=== PATIENT | female | born 1980 | race Two or more races ===

== ENCOUNTER 2020-08-31 00:39 | Emergency (ER) | payer OTHER ==
[~2020-08-31] VITALS: Ht 154.9 cm; Wt 63.5 kg
[2020-08-31] MEDS ORDERED: CHILDREN'S ASPI81 MG PO (00:42)
== END 2020-08-31 06:35 | disposition home or self-care (01) ==
LOC: ER 00:39
DX: O20.8 Other hemorrhage in early pregnancy (principal); Z3A.10 10 weeks gestation of pregnancy

== ENCOUNTER 2020-10-04 10:15 | Inpatient (IN) | payer OTHER ==
[~2020-10-04] VITALS: Ht 154.9 cm; Wt 72.6 kg
[~2020-10-04 10:15] MED LIST: CHILDREN'S ASPI81 MG PO
== END 2020-10-11 13:40 | DRG 819 ==
LOC: O/R 10-10 06:45 → OB/GYN 10-10 09:15
PROVIDERS: ADMIT Obstetrics & Gynecology; ATTEND Obstetrics & Gynecology
PROC: 0UVC7ZZ Restriction of Cervix, Via Natural or Artificial Opening (ICD-10-PCS; principal; 2020-10-10 09:15)
DX: O34.32 Maternal care for cervical incompetence, second trimester (principal); Z3A.15 15 weeks gestation of pregnancy